=== PATIENT | male | born 1975 | race African-American/Black ===

== ENCOUNTER → 2017-12-27 | Outpatient (CLI) | payer OTHER | LOC: CAT 14:05 | DX: K21.9 Gastro-esophageal reflux disease without esophagitis (principal); I10 Essential (primary) hypertension; J45.40 Moderate persistent asthma, uncomplicated ==

== ENCOUNTER → 2021-05-23 | Outpatient (CLI) | payer OTHER | LOC: CAT 14:28 | PROVIDERS: ATTEND Nurse Practitioner | DX: R10.32 Left lower quadrant pain (principal) ==